=== PATIENT | female | born 1955 | race Caucasian/White ===

== ENCOUNTER 2020-11-24 14:32 | Emergency (ER) | payer BC, OTHER, SELFPAY ==
[~2020-11-24] VITALS: Ht 162.6 cm; Wt 71.2 kg
--- NOTE | 2020-11-24 14:44 | NUR ---
TENT 2
[2020-11-24 14:59] VITALS: BP 120/72
--- NOTE | 2020-11-24 15:00 | NUR ---
BIB SELF C/O FEVER, 7/10 UPPER BACK PAIN X 4 DAYS. ORAL TEMP 101.3 AT THIS TIME. DENIES DYSURIA.
[2020-11-24] MEDS ORDERED: ACETAMINOPHEN EXTRA STRENGTH 500 MG TAB PO ONE (15:25)
--- NOTE | 2020-11-24 16:08 | NUR ---
COVID SWAB DONE.
[2020-11-24] MEDS ORDERED: ACET-10509 PO (16:32)
[2020-11-24] MEDS ORDERED: ALBU0.0912 IH (16:32)
[2020-11-24] MEDS ORDERED: DOXY100C9 PO (16:32)
[2020-11-24] MEDS ORDERED: AZIT250T4 PO (16:32)
[2020-11-24] MEDS ORDERED: PROM118S5 PO (16:32)
--- NOTE | 2020-11-24 17:03 | NUR ---
Patient discharged with v/s stable. Written and verbal after care instructions given and explained. Patient alert, oriented and verbalized understanding of instructions. Ambulatory with steady gait. All questions addressed prior to discharge. ID band removed. Patient advised to follow up with PMD. Rx of ACETAMINOPHEN, ALBUTEROL SULFATE, AZITHROMYCIN, DOXYCYCLINE HYCLATE, AND PROMETHAZINE/DEXTROMETHORPHAN given. Patient educated on indication of medication including possible reaction and side effects. Opportunity to ask questions provided and answered.
[2020-11-24 17:05] VITALS: BP 112/68
== END 2020-11-24 17:03 | disposition home or self-care (01) ==
LOC: MED 14:32
DX: J18.9 Pneumonia, unspecified organism (principal); E78.00 Pure hypercholesterolemia, unspecified; Z20.822 Contact with and (suspected) exposure to COVID-19
CPT/HCPCS: 71045; 99284

== ENCOUNTER 2021-10-22 11:17 | Emergency (ER) | payer BC, OTHER ==
[~2021-10-22] VITALS: Ht 162.6 cm; Wt 74.9 kg
[~2021-10-22 11:17] MED LIST: ACET-10509 PO; ALBU0.0912 IH; AZIT250T4 PO; PROM118S5 PO; VIB100 PO
[2021-10-22 11:27] VITALS: BP 155/74
--- NOTE | 2021-10-22 11:27 | NUR ---
PT AMB TO ER BED 10
--- NOTE | 2021-10-22 11:46 | NUR ---
66 Y/O FEMALE C/O RIGHT ANKLE PAIN 2/10 S/P POSSIBLE BUG BITE (UNKNOWN). STATES +PRURITIS, DENIES SOB, DENIES CHEST PAIN. DENIES PMH NKA
[2021-10-22] MEDS ORDERED: PRED20TA5 PO (13:10)
[2021-10-22] MEDS ORDERED: DIPH25TA39 PO (13:10)
[2021-10-22 13:30] VITALS: BP 142/70
--- NOTE | 2021-10-22 13:30 | NUR ---
Patient discharged with v/s stable. Written and verbal after care instructions given and explained. Patient alert, oriented and verbalized understanding of instructions. Ambulatory with steady gait. All questions addressed prior to discharge. ID band removed. Patient advised to follow up with PMD. Rx of BENADRYL, DELTASONE given. Patient educated on indication of medication including possible reaction and side effects. Opportunity to ask questions provided and answered.
== END 2021-10-22 13:30 | disposition home or self-care (01) ==
LOC: MED 11:17
DX: R21 Rash and other nonspecific skin eruption (principal); R42 Dizziness and giddiness; Z79.899 Other long term (current) drug therapy
CPT/HCPCS: 99283

== ENCOUNTER 2021-11-09 10:58 | Emergency (ER) | payer BC, OTHER ==
[~2021-11-09] VITALS: Ht 162.6 cm; Wt 73.2 kg
[~2021-11-09 10:58] MED LIST changes: +DIPH25TA39 PO; +PRED20TA5 PO
[2021-11-09 11:11] VITALS: BP 132/69
--- NOTE | 2021-11-09 11:15 | NUR ---
PT AMB TO BED 12.
--- NOTE | 2021-11-09 11:22 | NUR ---
EMT at bedside for EKG
--- NOTE | 2021-11-09 11:38 | NUR ---
66 y/o F BIB self from home c/o chest tightness since 0700. Patient A&Ox4, ambulatory, states acute onset of mid chest 6/10, tightness/intermittent, radiating to left side and left back. Worsens with twisting/turning motions. Patient states intermittent hand and feet tingling sensation from ambulating since 08/2021. States Ibuprofen today without relief to symptoms. Denies SOB, abdominal pain, blurry vision, nausea, vomiting, constipation, headache, fever, chills. States recent lightheadedness and dizziness, however, denies symptoms at this time. front desk monitor in place. Bed locked in lowest position, side rails x 1, call light in reach. PMH: [facility] PNA 2019 Meds: lovastatin, vitamin C, calcium Sx: denies NKDA
--- NOTE | 2021-11-09 12:20 | NUR ---
Dr. Hoffmann is evaluating patient at bedside
[2021-11-09 12:43] LABS: BASOPHILS # (AUTO) 0.3 K/uL (0.00-0.22); BASOPHILS % (AUTO) 3.6 % (0.0-2.0); EOSINOPHILS # (AUTO) 0.4 K/uL (0-0.4); EOSINOPHILS % (AUTO) 4.1 % (0.0-4.0); HEMATOCRIT 32.1 % (36-48); HEMOGLOBIN 10.4 g/dL (12.0-16.0); LYMPHOCYTES # (AUTO) 2.1 K/uL (2.5-16.5); LYMPHOCYTES % (AUTO) 22.3 % (20.5-51.1); MEAN CORPUSCULAR HEMOGLOBIN 25 pg (27-31); MEAN CORPUSCULAR HGB CONC 33 g/dL (33-37); MEAN CORPUSCULAR VOLUME 77.3 fL (80-94); MONOCYTES # (AUTO) 0.4 K/uL (0.8-1.0); MONOCYTES % (AUTO) 4.7 % (1.7-9.3); NEUTROPHILS # (AUTO) 6.1 K/uL (1.8-7.7); NEUTROPHILS % (AUTO) 65.3 % (42.2-75.2); PLATELET COUNT (AUTO) 172 K/uL (140-450); RED BLOOD CELL COUNT(AUTO) 4.16 MIL/uL (4.20-5.40); RED CELL DISTRIBUTION WIDTH 14.9 % (11.6-13.7); WHITE BLOOD COUNT (AUTO) 9.3 K/uL (4.8-10.8)
[2021-11-09 12:54] LABS: ALBUMIN 3.5 g/dL (3.4-5.0); CARBON DIOXIDE 26.1 mmol/L (21-32); CREATININE 0.9 mg/dL (0.6-1.3); POTASSIUM 4.1 mmol/L (3.5-5.1); TOTAL BILIRUBIN 0.2 mg/dL (0.0-1.0)
[2021-11-09 14:20] VITALS: BP 123/58
--- NOTE | 2021-11-09 15:48 | NUR ---
Patient discharged with v/s stable. Written and verbal after care instructions given and explained. Patient verbalized understanding. Ambulatory with steady gait. All questions addressed prior to discharge. Advised to follow up with PMD. Lab work, RAD result copies handed to patient.
== END 2021-11-09 15:48 | disposition home or self-care (01) ==
LOC: MED 10:58
DX: R07.9 Chest pain, unspecified (principal); E78.00 Pure hypercholesterolemia, unspecified; Z98.890 Other specified postprocedural states
CPT/HCPCS: 36415; 71045; 80053; 83880; 84484; 85025; 93005; 99285; Q0092